=== PATIENT | female | born 1945 | race Two or more races ===

== ENCOUNTER 2020-05-11 13:02 | Inpatient (IN) | payer OTHER ==
[~2020-05-11] VITALS: Ht 162.6 cm; Wt 63.5 kg
[2020-06-02] MEDS ORDERED: METOPROLOL SUCC25 MG (13:08)
== END 2020-06-10 16:24 | disposition home or self-care (01) | DRG 330 ==
LOC: SURH 06-02 09:30 → SURG 06-02 09:36 → O/R 06-02 09:36 → SURH 06-02 14:30 → SURG 06-02 16:04
PROVIDERS: ADMIT Colon & Rectal Surgery; ATTEND Colon & Rectal Surgery
PROC: 07BB4ZZ Excision of Mesenteric Lymphatic, Percutaneous Endoscopic Approach (ICD-10-PCS; 2020-06-02)
PROC: 0DTF4ZZ Resection of Right Large Intestine, Percutaneous Endoscopic Approach (ICD-10-PCS; principal; 2020-06-02 14:30)
DX: C18.2 Malignant neoplasm of ascending colon (principal); K92.1 Melena; K91.89 Other postprocedural complications and disorders of digestive system; K56.7 Ileus, unspecified; I10 Essential (primary) hypertension

== ENCOUNTER 2020-11-20 08:21 | Day surgery (SDC) | payer OTHER ==
[~2020-11-20 08:21] MED LIST: METOPROLOL SUCC25 MG
== END 2020-11-20 13:20 | disposition home or self-care (01) ==
LOC: AMB-ENDOS 08:21
PROVIDERS: ATTEND Colon & Rectal Surgery
DX: K62.89 Other specified diseases of anus and rectum (principal); K64.1 Second degree hemorrhoids; Z20.822 Contact with and (suspected) exposure to COVID-19

== ENCOUNTER 2020-11-20 14:33 | Emergency (ER) | payer OTHER ==
[~2020-11-20] VITALS: Ht 149.9 cm; Wt 37.6 kg
== END 2020-11-20 19:51 | disposition home or self-care (01) ==
LOC: ER 14:33
DX: I82.491 Acute embolism and thrombosis of other specified deep vein of right lower extremity (principal); Z03.818 Encounter for observation for suspected exposure to other biological agents ruled out

== ENCOUNTER 2020-11-25 12:25 | Inpatient (IN) | payer OTHER ==
[~2020-11-25] VITALS: Ht 160 cm
[2020-11-25] MEDS ORDERED: LEVOTHYROXINE25 MCG PO (12:44)
[2020-11-25] MEDS ORDERED: TOPROL XL25 M1 PO (12:46)
[2020-11-25] MEDS ORDERED: ACID REDUCER20 M1 PO (12:46)
[2020-11-25] MEDS ORDERED: XARELTO15 MG (12:47)
[2020-11-25] MEDS ORDERED: PANTOPRAZOLE SO20 MG PO (12:47)
== END 2020-12-04 14:33 | disposition home or self-care (01) | DRG 375 ==
LOC: ER 12:25 → SEC-K 20:18 → MEDJ 20:18
PROVIDERS: ADMIT Internal Medicine Cardiovascular Disease; ATTEND Internal Medicine Cardiovascular Disease
PROC: 30233N1 Transfusion of Nonautologous Red Blood Cells into Peripheral Vein, Percutaneous Approach (ICD-10-PCS; principal; 2020-11-26)
PROC: 02HV33Z Insertion of Infusion Device into Superior Vena Cava, Percutaneous Approach (ICD-10-PCS; 2020-11-27)
DX: C18.2 Malignant neoplasm of ascending colon (principal); D63.0 Anemia in neoplastic disease; I82.491 Acute embolism and thrombosis of other specified deep vein of right lower extremity; K62.5 Hemorrhage of anus and rectum; N39.0 Urinary tract infection, site not specified; R31.9 Hematuria, unspecified; B96.20 Unspecified Escherichia coli [E. coli] as the cause of diseases classified elsewhere; I10 Essential (primary) hypertension; Z20.822 Contact with and (suspected) exposure to COVID-19